=== PATIENT | male | born 1995 | race Two or more races ===

== ENCOUNTER 2018-04-21 23:21 | Emergency (ER) | payer OTHER ==
[~2018-04-21] VITALS: Ht 188 cm; Wt 72.6 kg
[2018-04-21 23:43] VITALS: BP 127/87
[2018-04-22] MEDS ORDERED: BACITRACIN TOP OINT 1 UD PKG TOP ONE ×2 (00:32→00:45)
[2018-04-22] MEDS ORDERED: cefTRIAXone SOD 1,000 MG VL IM ONE (00:45)
== END 2018-04-22 01:08 | disposition home or self-care (01) ==
LOC: ER 23:21
DX: L03.031 Cellulitis of right toe (principal)
CPT/HCPCS: 10060; 96372; 99283; J0696